=== PATIENT | male | born 1985 | race Caucasian/White ===

== ENCOUNTER 2016-10-22 14:33 | Inpatient (IN) | payer BC, OTHER ==
[~2016-10-22] VITALS: Ht 177.8 cm; Wt 65.8 kg
[2016-10-22 14:55] VITALS: BP 129/65
--- NOTE | 2016-10-22 14:55 | NUR ---
Pre-admission Notes: Client is seen in intake at this time. He is alert and oriented x 4. Verbally responsive. Appears anxious and withdrawn. Able to make his needs known. He is able to appropriately answer questions regarding the admission process. Educated patient on the admission process and verbalized good understanding. He denies any seizure history and reports past medical hx of Depression. He reports allergies to Lactose, where he experiences nausea, and stomach cramps when taken. Client states that he is here to safely detox from heroin and methamphetamine. VS as ff: BP 129/65 Pulse 112 RR [address] 5/10 generalized body aches COWS 8
--- NOTE | 2016-10-22 15:15 | NUR ---
Admission Note: Patient is a 31 year old male admitted for opiate and methamphetamine dependence under the care of Dr. Andrews Santillan. He is alert and oriented x 4. Able to make his needs known. Denies S/I, H/I or AV hallucinations noted. Respirations even and unlabored. No SOB noted. Body check done. No contraband was found. Skin check done. No rashes, no lesions, no bruising noted. Bilateral trackmarks noted on AC area. Abdomen soft and non-distended with (+) BS in all 4 quadrants. No complains of N/V/D or constipation noted. Reports that his last BM was this AM. Complains of mild abdominal cramps related to withdrawals. Voids independently. Able to provide urine for UDS. Bladder non-distended. No complains of dysuria noted. Ambulatory ad deon with steady gait. Past medical hx of depression at 17 years old, for which he use to take Prozac, but does not recall how many milligrams he takes and verbalizes "It's been years since I last took it, but I want to continue taking it again." Denies any family hx of substance abuse. Denies any seizure history. He denies having a PCP at this time. He reports that his usual withdrawal symptoms are stomach cramps, anxiety, insomnia and body aches. Patient is currently unemployed and lives with his parents. He reports being in halfway x 45 days and got out on 08/21/2016 and started using again. His longest period of sobriety was x 60 days in 10/2014. Drug Use Hx as ff: 1. Heroin (since 23 years old) - injects 1/2 gram of Heroin daily since 08/21/2016. Last use was on 10/21/2016 at 1000 1/10 gram. 2. Methamphetamine (since 30 years old) - smokes 1/2 gram intermittently since 08/21/2016. Last use was on 10/17/2016 Treatment History: 1. [facility] - 10/14/2014 x 7 days to detox 2. [facility] - 10/21/[address] Santillan made aware of patient's current medical condition, drug use hx and arrival in the unit. Per MD Santillan, he will come and see the patient shortly and will enter in orders.
[2016-10-22] MEDS ORDERED: BUPRENORPHINE HCL 2 MG TAB.SUBL SL PRN (15:45)
[2016-10-22] MEDS ORDERED: LORAZEPAM 1 MG TABLET PO PRN (15:45)
[2016-10-22] MEDS ORDERED: MIRALAX 17 GM POWD.PACK PO PRN (15:45)
[2016-10-22] MEDS ORDERED: ONDANSETRON 4 MG/2 ML VIAL IM PRN (15:45)
[2016-10-22] MEDS ORDERED: LOPERAMIDE HCL 2 MG CAPSULE PO PRN ×2 (15:45)
[2016-10-22] MEDS ORDERED: IBUPROFEN 600 MG TABLET PO PRN (15:45)
[2016-10-22] MEDS ORDERED: HYDROXYZINE PAMOATE 25 MG CAPSULE PO PRN (15:45)
[2016-10-22] MEDS ORDERED: TRAZODONE 50 MG TABLET PO PRN (15:45)
[2016-10-22] MEDS ORDERED: MAG HYDROX/AL HYDROX/SIMETH 30 ML LIQUID UDC PO PRN (15:45)
[2016-10-22] MEDS ORDERED: DICYCLOMINE HCL 20 MG TABLET PO PRN (15:45)
[2016-10-22] MEDS ORDERED: ACETAMINOPHEN 325 MG TABLET PO PRN (15:45)
[2016-10-22] MEDS ORDERED: ONDANSETRON ODT 4 MG TAB.RAPDIS SL PRN (15:45)
[2016-10-22] MEDS ORDERED: CLONIDINE HCL 0.1 MG TABLET PO PRN (15:45)
[2016-10-22 15:59] LABS: *AMPHETAMINE, URINE NEGATIVE (NEGATIVE); *BARBITURATE, URINE NEGATIVE (NEGATIVE); *CANNABINOID, URINE NEGATIVE (NEGATIVE); *COCCAINE, URINE NEGATIVE (NEGATIVE); *OPIATE, URINE POSITIVE (NEGATIVE); *PHENCYCLIDINE SCREEN,URINE NEGATIVE (NEGATIVE)
[2016-10-22 16:00] VITALS: BP 121/70
[2016-10-22] MEDS ORDERED: FLUO40CA8 PO (16:15)
[2016-10-22] MEDS ORDERED: TRAZ-144 PO (16:15)
[2016-10-22] MEDS: METHOCARBAMOL 750 MG TABLET PO PRN (16:34)
--- NOTE | 2016-10-22 16:34 | NUR ---
Robaxin 750 mg PO given: Patient noted with complain of 5/10 muscle aches and pains related to opiate withdrawal. Medicated patient with Robaxin 750 mg PO as ordered. Will monitor for effectiveness.
[2016-10-22] MEDS ORDERED: [UNRECOGNIZED DRUG - REMARK] ALT NOSTRI (17:25)
[2016-10-22] MEDS ORDERED: PRE WORKOUT (17:26)
--- NOTE | 2016-10-22 17:34 | NUR ---
Re-assessment: Per patient, PRN Robaxin was effective in reducing muscle aches and pains. PL 210.
--- NOTE | 2016-10-22 19:02 | NUR ---
End of Shift Notes: Patient admitted today for medically supervised withdrawal from opiates. VS monitored closely. No significant abnormalities noted. Withdrawal symptoms were closely monitored. Patient presented with stomach cramps, muscle aches and mild anxiety. Initial COWS upon admission 8, Last COWS 8. Patient will be starting his 4-day Subutex taper in AM. Medicated patient with Robaxin 750 mg PO at 1634 for muscle aches and pains with help after 1 hour. Unable to participate in group and activities. Compliant with care and treatment. Will continue to monitor closely.
--- NOTE | 2016-10-22 19:30 | NUR ---
Start of shift notes: Received patient in bed, alert and oriented times 4. Speech is clear, normal in rate and able to make known of his needs. Behavior; calm and cooperative with care. Encouraged patient to express needs and concerns. Denies SI/HI/AVH. Patient interacted well staff and peers. Visible in the unit. No behavior issues. Will continue to monitor behavior and medication effectiveness throughout the shift.
[2016-10-22 19:48] LABS: BASOPHILS # (AUTO) 0.1 K/uL (0.0-8.0); BASOPHILS % (AUTO) 0.9 % (0.0-2.0); EOSINOPHILS # (AUTO) 0.4 K/uL (0.0-0.7); EOSINOPHILS % (AUTO) 4.1 % (0.0-7.0); HEMATOCRIT 47.6 % (40-50); HEMOGLOBIN 15.8 G/DL (14.0-18.0); LYMPHOCYTES # (AUTO) 2.8 K/UL (0.8-4.8); LYMPHOCYTES % (AUTO) 30.8 % (20.5-51.5); MEAN CORPUSCULAR HEMOGLOBIN 30.4 UUG (27.0-31.0); MEAN CORPUSCULAR HGB CONC 33 g/dL (32.0-37.0); MEAN CORPUSCULAR VOLUME 91.7 FL (82.0-92.0); MONOCYTES # (AUTO) 0.5 K/UL (0.1-1.30); MONOCYTES % (AUTO) 5.5 % (0.0-11.0); NEUTROPHILS # (AUTO) 5.3 K/UL (1.8-8.9); NEUTROPHILS % (AUTO) 58.7 % (38.5-71.5); PLATELET COUNT (AUTO) 357 K/UL (150-450); RED BLOOD CELL COUNT(AUTO) 5.19 MIL/UL (4.7-6.1); WHITE BLOOD COUNT (AUTO) 9.1 K/UL (4.0-11.2)
[2016-10-22 19:59] LABS: ETHANOL < 3 MG/DL (0-0)
[2016-10-22 20:00] VITALS: BP 125/80
[2016-10-22 20:01] LABS: ALANINE AMINOTRANSFERASE 39 U/L (16-63); ALKALINE PHOSPHATASE 79 U/L (50-136); ASPARTATE AMINOTRANSFERASE 33 U/L (15-37); BILIRUBIN,TOTAL 0.2 mg/dL (0.2-1.0); CARBON DIOXIDE 32 mmol/L (21-32); CHLORIDE 104 mmol/L (98-107); CREATININE 1.3 mg/dL (0.6-1.3); GLUCOSE 95 mg/dL (74-106); MAGNESIUM 2.3 mg/dL (1.8-2.4); TOTAL PROTEIN, SERUM 8.4 g/dL (6.4-8.2); UREA NITROGEN, BLOOD 10 mg/dL (7-18)
--- NOTE | 2016-10-23 00:06 | NUR ---
Patient administered Trazodone 50mg. Patient asleep and unable to assess COWS and refused vitals signs at this time. Addendum: 10/23/16 at 0009 by SHAWN QUILES RN Amended: Links added.
[2016-10-23 04:49] VITALS: BP 107/72
--- NOTE | 2016-10-23 05:30 | NUR ---
End of shift notes: Patient remained calm and cooperative with care. Vital signs: 107/72, 94, 18, 97.4, 97% room air. Denies pain and any apparent discomfort at this time. No adverse reaction to medication reported or noted at this time. All needs are met. No behavior issues at this time. Patient ready to start 4 day subutex taper this morning. COWS @ 0400 is 2. Compliant with medication regiment and all unit rules. Interacted well with staff and selective peers. Comfortable and visible in the unit.
--- NOTE | 2016-10-23 07:00 | NUR ---
Start of Shift Notes: Received patient in his room. Alert and oriented x 4. Verbally responsive. Able to make his needs known. Respirations even and unlabored. No SOB noted. Skin warm and dry to touch. Abdomen soft and non-distended. BS (+) in all 4 quadrants. No complains of N/V/D or constipation noted. Voids independently with steady gait. Patient is a 31 year old male admitted for opiate and methamphetamine dependence who was placed on a 4-day Subutex taper as ordered. Prior to admission, patient was using 1/2 gram of Heroin IV daily x 2 months and intermittent use of 1/2 gram of methamphetamine x 2 months. Has past medical hx of depression. Allergic to lactose. On a lactose free diet. Educated patient on his current plan of care for the day and his medication regimen. Encouraged oral fluid intake and encouraged group participation to learn new skills to prevent relapse. Will continue to monitor closely.
[2016-10-23 08:00] VITALS: BP 117/76
[2016-10-23] MEDS: METHOCARBAMOL 750 MG TABLET PO PRN (08:51)
[2016-10-23] MEDS: BUPRENORPHINE HCL 2 MG TAB.SUBL SL SCH ×3 (08:51→20:23)
[2016-10-23] MEDS: MULTIVITAMINS,THERAPEUTIC TABLET PO SCH (08:51)
--- NOTE | 2016-10-23 08:51 | NUR ---
Robaxin 750 mg PO as ordered: patient complained of 6/10 myalgia related to his withdrawal symptoms. Non-pharmacological interventions were ineffective. Medicated patient with Robaxin 750 mg PO as ordered. Will monitor for effectiveness.
[2016-10-23] MEDS ORDERED: TUBERCULIN,PURIF.PROT.DERIV. 5 TU/0.1 ML TEST ID ONE (09:00)
--- NOTE | 2016-10-23 09:51 | NUR ---
Re-assessment: per patient, PRN Robaxin was effective in reducing myalgia. PL 04/22.
[2016-10-23] MEDS: FLUOXETINE HCL 20 MG CAPSULE PO SCH (10:30)
--- NOTE | 2016-10-23 10:30 | NUR ---
Psych MD Visit: Dr. Greenberg in to see the patient at this time and started patient on Prozac as ordered. Education provided. Patient verbalized good understanding. Will continue to monitor.
--- NOTE | 2016-10-23 11:18 | NUR ---
Prozac not adminstered: Patient refused to take Prozac at this time. Patient prefers to take it in AM. Education provided. Per patient, he will take it tomorrow AM.
[2016-10-23 12:00] VITALS: BP 95/62
[2016-10-23 16:00] VITALS: BP 115/68
--- NOTE | 2016-10-23 18:57 | NUR ---
End of Shift Notes: Patient initiated his 4-day Subutex taper today to control withdrawal symptoms related to opiates. Tolerated well. No adverse reactions noted. VS monitored closely. No significant abnormalities noted. Withdrawal symptoms were closely monitored. Initial COWS 12, patient presented with chills, hot flashes, piloerection of the skin, anxiety, muscle aches and pains and largely dilated pupils. Medicated patient with Robaxin 750 mg PO as ordered at 0851 with help after 1 hour. Last COWS 4. Per patient Subutex has been effective in reducing his withdrawal symptoms. TB test given to left forearm. Patient tolerated well. No bleeding from injection site noted. Patient was unable to participate in group and activities due to his withdrawal symptoms. Compliant with care and treatment. All needs met and attended. Will continue to monitor closely.
--- NOTE | 2016-10-23 19:30 | NUR ---
START OF SHIFT Patient is a 31 year old male admitted for opiate and methamphetamine dependence .Pt is alert and oriented times 4. Speech is clear ,able to verbalize needs. Behavior is calm and cooperative.Received in room in stable condition.Pt is intolerant to lactose, Denies SI/HI/AH/VH. Visible in the unit. Pt is on 4 day Subutex taper as ordered and is tolerating well;stated that it is helping him with his withdrawal symptoms.PO fluids encouraged as tolerated.All safety measures in place per hospital policy,call light within reach.Will continue to monitor .
[2016-10-23 20:00] VITALS: BP 98/65
[2016-10-23] MEDS: CLONIDINE HCL 0.1 MG TABLET PO SCH (20:22)
[2016-10-23] MEDS: GABAPENTIN 300 MG CAPSULE PO SCH (20:22)
[2016-10-24] VITALS: BP 106/81
[2016-10-24 04:00] VITALS: BP 103/44
--- NOTE | 2016-10-24 06:44 | NUR ---
END OF SHIFT Patient is a 31 year old male admitted for opiate and methamphetamine dependence .Pt is alert and oriented times 4. Calm and cooperative.Pt is intolerant to lactose. Pt is on 4 day Subutex taper as ordered and is tolerating well;stated that it is helping him with his withdrawal symptoms.PO fluids encouraged as tolerated.Last COWS=2 at 0400.Pt slept all night without any problem,slept 8 hrs,fluid intake was 1710 mls,voided x 2.No PRN meds given.All safety measures in place per hospital policy,call light within reach.Will continue to monitor .
--- NOTE | 2016-10-24 07:26 | NUR ---
START OF SHIFT NOTE patient is alert and orientated X4, he is laying in bed resting this morning with respirations even and unlabored. Patient slept 8 hours last night per night nurse. last COWS 2. No PRNS given last night. All safety measures in place, will continue to monitor patient.
[2016-10-24 08:06] VITALS: BP 95/59
[2016-10-24] MEDS: GABAPENTIN 300 MG CAPSULE PO SCH ×2 (08:09→21:27)
[2016-10-24] MEDS: MULTIVITAMINS,THERAPEUTIC TABLET PO SCH (08:10)
[2016-10-24] MEDS: FLUOXETINE HCL 20 MG CAPSULE PO SCH (08:10)
[2016-10-24] MEDS: CLONIDINE HCL 0.1 MG TABLET PO SCH ×2 (08:11→21:27)
[2016-10-24] MEDS ORDERED: BUPRENORPHINE HCL 2 MG TAB.SUBL SL SCH (09:00)
[2016-10-24 10:10] LABS: HEPATITIS B SURFACE AG Negative (Negative)
[2016-10-24 12:31] VITALS: BP 118/72
[2016-10-24] MEDS: BUPRENORPHINE HCL 2 MG TAB.SUBL SL SCH ×2 (15:24→21:27)
[2016-10-24] MEDS: BACLOFEN 10 MG TABLET PO SCH ×2 (15:24→21:27)
[2016-10-24 16:57] VITALS: BP 127/71
--- NOTE | 2016-10-24 18:41 | NUR ---
END OF SHIFT NOTE Patient is a 31 year old male admitted for heroin and meth, he is on a Subutex taper and tolerating well. Last COWS 6. No history of seizures. Patient attended group and activities. He was seem by Dr. Santillan today. Patient was not given any PRNs today. Vital signs remain within normal limits. All needs have been met. All safety measures in place. Will continue to monitor patient until endorsed to oncoming night nurse.
--- NOTE | 2016-10-24 19:30 | NUR ---
START OF SHIFT Patient is a 31 year old male admitted for heroin and meth dependency, he is on a Subutex taper and tolerating well. Last COWS 6. No history of seizures. Per report, Patient was not given any PRNs today. Vital signs remained within normal limits. All needs have been met.Pt received in stable condition. All safety measures in place. Will continue to monitor.
[2016-10-24 20:00] VITALS: BP 127/75
[2016-10-24] MEDS: TRAZODONE 50 MG TABLET PO PRN (23:50)
--- NOTE | 2016-10-24 23:50 | NUR ---
PRN TRAZODONE GIVEN ORDERED FOR C/O INSOMNIA.WILL MONITOR.
[2016-10-25] VITALS: BP 116/70
--- NOTE | 2016-10-25 00:50 | NUR ---
PRN F/U Pt is resting in bed with eyes closed,breathing is even and non labored,no s/s of distress noted,will continue to monitor.
[2016-10-25 04:00] VITALS: BP 101/68
--- NOTE | 2016-10-25 06:31 | NUR ---
END OF SHIFT Patient is a 31 year old male admitted for heroin and meth dependency, remains on a Subutex taper and tolerating well. Last COWS 2. No history of seizures. Vital signs remained within normal limits. PRN Trazodone was given for insomnia with good effect.Pt slept 7 hrs,fluid intake was 1095 mls,voided x 2 . All needs have been met.Pt is in stable condition. All safety measures in place. Will continue to monitor.
--- NOTE | 2016-10-25 07:43 | NUR ---
START OF SHIFT NOTE Patient is alert and orientated X 4. Patient is laying in bed this morning with respirations even and unlabored. patient slept 7 hours last night per night nurse. Last COWS 2 per night nurse. Patient was given Trazodone last night PRN to help him sleep, with effectiveness. He is on a 4 day subutex taper and tolerating well. all safety measures are in place. will continue to monitor.
[2016-10-25 08:11] VITALS: BP 106/57
[2016-10-25] MEDS: MULTIVITAMINS,THERAPEUTIC TABLET PO SCH (08:27)
[2016-10-25] MEDS: GABAPENTIN 300 MG CAPSULE PO SCH ×2 (08:27→20:29)
[2016-10-25] MEDS: FLUOXETINE HCL 20 MG CAPSULE PO SCH (08:27)
[2016-10-25] MEDS: CLONIDINE HCL 0.1 MG TABLET PO SCH ×2 (08:28→20:30)
[2016-10-25] MEDS: BUPRENORPHINE HCL 2 MG TAB.SUBL SL SCH ×3 (08:28→20:29)
[2016-10-25] MEDS: BACLOFEN 10 MG TABLET PO SCH ×3 (08:28→20:30)
[2016-10-25 12:59] VITALS: BP 110/76
[2016-10-25 17:52] VITALS: BP 115/61
--- NOTE | 2016-10-25 18:48 | NUR ---
END OF SHIFT NOTE Patient is a 31 year old male admitted 10/22/16 for Heroin, meth, and hydrocodone. Patient is on a 4 day Subutex taper and tolerating well. Last COWS 4 no PRNS given during the day shift. Vital sign have been within normal limit today. Patient is allergic to lactose, full code, with no other allergies. Skin is intact. Patient has been compliant with MDs orders and treatment plan, he has been participating in group and activities. All safety measures are in place and all needs have been met. Will continue to monitor patient until endorsed to night nurse.
--- NOTE | 2016-10-25 18:48 | NUR ---
START OF SHIFT NOTE: Patient endorsed by day shift nurse in stable condition. Report received. Patient is a 31year old male admitted to [facility] on 10/22/2016 for medically supervised withdrawal from Opioid, continue 5 Day Subutex Taper with tolerated well without ASE. Patient remained compliant with treatment, medications and diet regime. Patient reports Allergy to Dairy/Lactose. Patient is on Full Code, Regular Diet, Fall and Seizures Precautions. Patient denies Seizures History. Upon endorsement, patient is in the room. Assessment done. Patient is alert and oriented x4. Speech is clear and soft. COWS 7. Patient presented with mild anxiety, agitation, nervousness, diaphoresis, restlessness, body aches, insomnia ,fatigue, nasal stuff/tears, and yawning. Patient denies SI/HI. Respirations unlabored and even. Patient denies SOB and chest pain. Lungs Sounds are clear bilaterally. Bowel Sounds active in all x4 quadrants. PERRLA, brisk capillary refill, dry plasterer helper equal and strong. Skin is intact, warm and dry to touch. Encourage fluids as tolerated. Encourage to attend activities groups. All needs met. Safety measures on place. Call light within reach, bed in lowest position and locked, padded rails up bilaterally rails up bilaterally. Will continue to monitor closely.
[2016-10-25 20:00] VITALS: BP 115/67
[2016-10-25] MEDS: TRAZODONE 50 MG TABLET PO PRN (23:10)
--- NOTE | 2016-10-25 23:10 | NUR ---
PRN TRAZODONE 50 MG 1 TAB PO ADMINISTRATION. Patient c/o insomnia and asked aid. Patient was assessed. VS WNL. Patient denies SI/HI. PRN Trazodone PO discussed with patient, and patient's educated for actions, side effects, and adverse reactions of Trazodone. Patient returned knowledge back by verbalized understanding. PRN Trazodone 50 mg 1 tab PO administrated with full glass of water as ordered. Patient tolerated well. All needs met. Safety measures on place. Call light within reach, bed in lowest position and locked, padded rails up bilaterally rails up bilaterally. Will continue to monitor closely.
[2016-10-26] VITALS: BP 117/63
--- NOTE | 2016-10-26 00:10 | NUR ---
RE-ASSESSMENT Patient is sleeping. Respirations even and unlabored. RR: 14. PRN Trazodone PO waseffective. All needs met. Safety measures on place. Call light within reach, bed in lowest position and locked, padded rails up bilaterally rails up bilaterally. Will continue to monitor closely.
--- NOTE | 2016-10-26 04:00 | NUR ---
VS REFUSED AND COWS/CIWA DEFERRED Patient refused to be woken up for 04:00 VS. COWS/CIWA deferred d/t patient sleeping to assess while patient is awake. Safety measures on place by hospital policy: Call light within reach, bed in lowest position and locked; padded side rails up x2. Will continue to monitor closely.
--- NOTE | 2016-10-26 06:51 | NUR ---
END OF SHIFT NOTE: Patient endorsed to day shift nurse in stable condition. Report received. Patient is a 31 year old male admitted to [facility] on 10/22/2016 for medically supervised withdrawal from Opioid, continue 5 Day Subutex Taper with tolerated well without ASE. Patient remained compliant with treatment, medications and diet regime. Patient reports Allergy to Dairy/Lactose. Patient is on Full Code, Regular Diet, Fall and Seizures Precautions. Patient denies Seizures History. Last COWS 9 at 0000. Patient refused to be woken up for 04:00 VS. COWS/CIWA deferred d/t patient sleeping to assess while patient is awake. During my maintenance supervisor 2nd shift patient presented with anxiety, agitation, nervousness, tachycardia, diaphoresis, restlessness, body aches, insomnia ,fatigue, nasal stuffy/moist eyes, and yawning. Patient denies SI/HI. VS were stable and WNL. Respirations unlabored and even. Patient denies SOB and chest pain. Lungs Sounds are clear bilaterally. Bowel Sounds active in all x4 quadrants. PERRLA, brisk capillary refill, advisory application developer equal and strong. Skin is intact, warm and dry to touch. PRN Trazodone PO administrated for insomnia was effective. Patient slept 6 hours, intake 1,000 ml, voided x1. Encourage fluids as tolerated. Encourage to attend activities groups. All needs met. Safety measures on place. Call light within reach, bed in lowest position and locked, padded rails up bilaterally All needs met.
--- NOTE | 2016-10-26 07:50 | NUR ---
Start of shift note; Received report from night nurse. Patient is a 31 year old male admitted for Opiate withdrawals. Patient was placed on a 4 day Subutex taper, no adverse reactions noted. Patient reported history of depression. Patient slept for 6 hours. Patient is on fall precaution. Bed in lowest position, call light within reach. All safety measures secured. Will continue to monitor patient.
[2016-10-26 08:00] VITALS: BP 113/64
[2016-10-26] MEDS: FLUOXETINE HCL 20 MG CAPSULE PO SCH (08:46)
[2016-10-26] MEDS: GABAPENTIN 300 MG CAPSULE PO SCH ×2 (08:46→21:15)
[2016-10-26] MEDS: BACLOFEN 10 MG TABLET PO SCH ×3 (08:47→21:17)
[2016-10-26] MEDS: CLONIDINE HCL 0.1 MG TABLET PO SCH ×2 (08:47→21:16)
[2016-10-26] MEDS: MULTIVITAMINS,THERAPEUTIC TABLET PO SCH (08:47)
[2016-10-26] MEDS ORDERED: BUPRENORPHINE HCL 2 MG TAB.SUBL SL SCH (09:00)
[2016-10-26 12:00] VITALS: BP 129/87
[2016-10-26] MEDS ORDERED: GABA-534 PO (14:07)
[2016-10-26] MEDS ORDERED: DICY20TA28 PO (14:07)
[2016-10-26] MEDS ORDERED: IBUP-1955 PO (14:07)
[2016-10-26] MEDS ORDERED: CLON0.1T14 PO (14:07)
[2016-10-26] MEDS ORDERED: BACL10TA PO (14:07)
[2016-10-26] MEDS ORDERED: HYDR-3895 PO (14:07)
[2016-10-26 16:00] VITALS: BP 119/69
--- NOTE | 2016-10-26 18:06 | NUR ---
START OF SHIFT NOTE: Patient endorsed by day shift nurse in stable condition. Report received. Patient is a 31 year old male admitted to [facility] on 10/22/2016 for medically supervised withdrawal from Opioid, completed 5 Day Subutex Taper with tolerated well without ASE. Patient remained compliant with treatment, medications and diet regime. Patient reports Allergy to Dairy/Lactose. Patient is on Full Code, Regular Diet, Fall and Seizures Precautions. Patient denies Seizures History. Upon endorsement, patient is in the room. Assessment done. Patient is alert and oriented x4. Speech is clear and soft. COWS 3. Patient presented with mild anxiety, agitation, nervousness, diaphoresis, and restlessness. Patient denies SI/HI. Respirations unlabored and even. Patient denies SOB and chest pain. Lungs Sounds are clear bilaterally. Bowel Sounds active in all x4 quadrants. PERRLA, brisk capillary refill, blurb writer equal and strong. Skin is intact, warm and dry to touch. Patient scheduled discharging tomorrow, on 10/27/2016. UDS test collected. Encourage fluids as tolerated. Encourage to attend activities groups. All needs met. Safety measures on place. Call light within reach, bed in lowest position and locked, padded rails up bilaterally rails up bilaterally. Will continue to monitor closely.
--- NOTE | 2016-10-26 18:06 | NUR ---
End of shift note; Patient is AOX4. Patient is a 31 year old male admitted for Opiate withdrawals. Patient was placed on a 4 day Subutex taper, no adverse reactions noted. Patient reported history of depression. Patient is on fall precaution. Bed in lowest position, call light within reach. Patient is medically cleared for discharge tomorrow. Patient completed taper without any adverse reactions. All safety measures secured. Met all needs.
[2016-10-26 20:00] VITALS: BP 109/66
[2016-10-26 21:45] LABS: *AMPHETAMINE, URINE NEGATIVE (NEGATIVE); *BARBITURATE, URINE NEGATIVE (NEGATIVE); *CANNABINOID, URINE NEGATIVE (NEGATIVE); *COCCAINE, URINE NEGATIVE (NEGATIVE); *OPIATE, URINE NEGATIVE (NEGATIVE); *PHENCYCLIDINE SCREEN,URINE NEGATIVE (NEGATIVE)
[2016-10-27] VITALS: BP 107/63
--- NOTE | 2016-10-27 07:00 | NUR ---
END OF SHIFT NOTE: Patient endorsed to day shift nurse in stable condition. Report received. Patient is a 31 year old male admitted to [facility] on 10/22/2016 for medically supervised withdrawal from Opioid, continue 5 Day Subutex Taper with tolerated well without ASE. Patient remained compliant with treatment, medications and diet regime. Patient reports Allergy to Dairy/Lactose. Patient is on Full Code, Regular Diet, Fall and Seizures Precautions. Patient denies Seizures History. Last COWS 2 at 0000. During my overnight stocker patient presented with anxiety, agitation, nervousness, tachycardia, and diaphoresis. Patient denies SI/HI. VS were stable and WNL during my shift. Patient refused to be woken up for 04:00 VS. COWS/CIWA deferred d/t patient sleeping to assess while patient is awake. Respirations unlabored and even. Patient denies SOB and chest pain. Lungs Sounds are clear bilaterally. Bowel Sounds active in all x4 quadrants. PERRLA, brisk capillary refill, accounts receivable specialist equal and strong. Skin is intact, warm and dry to touch. No PRN Medications administrated. Patient will discharging today, 10/27/2016, per MD's order. UDS Test results placed in chart. Patient slept 4 hours, intake 791 ml, voided x2. Encourage fluids as tolerated. Encourage to attend activities groups. All needs met. Safety measures on place. Call light within reach, bed in lowest position and locked, padded rails up bilaterally All needs met.
--- NOTE | 2016-10-27 07:37 | NUR ---
START OF SHIFT Patient scheduled for discharge this shift. Taper complete. No PRNs given last shift. He slept 4 hours. COWS 2 per night nurse. Patient reports readiness to discharge. Vitals stable. Will monitor until discharge.
[2016-10-27 08:00] VITALS: BP 113/64
[2016-10-27] MEDS: CLONIDINE HCL 0.1 MG TABLET PO SCH (08:28)
[2016-10-27] MEDS: GABAPENTIN 300 MG CAPSULE PO SCH (08:30)
[2016-10-27] MEDS: BACLOFEN 10 MG TABLET PO SCH (08:30)
[2016-10-27] MEDS: FLUOXETINE HCL 20 MG CAPSULE PO SCH (08:31)
[2016-10-27] MEDS: MULTIVITAMINS,THERAPEUTIC TABLET PO SCH (08:31)
--- NOTE | 2016-10-27 10:19 | NUR ---
DISCHARGE NOTE Patient is in stable condition, [id number], no complications. Skin intact. Patient given discharge instructions and pt dated and signed and verbalized understanding. All questions answered. Vital signs WNL. Pt denies S/I and H/I. COWS 2. Patient transported to [facility] by [facility] on 10/27/16 at 0959 where she was picked up by [employer]. MD is aware of pt discharge.
== END 2016-10-27 09:59 | disposition other institution (70) | DRG 895 ==
LOC: SRC 14:33
PROVIDERS: ADMIT Internal Medicine; ATTEND Internal Medicine
PROC: HZ2ZZZZ Detoxification Services for Substance Abuse Treatment (ICD-10-PCS; principal; 2016-10-22)
PROC: HZ41ZZZ Group Counseling for Substance Abuse Treatment, Behavioral (ICD-10-PCS; 2016-10-24)
PROC: HZ31ZZZ Individual Counseling for Substance Abuse Treatment, Behavioral (ICD-10-PCS; 2016-10-25)
DX: F11.23 Opioid dependence with withdrawal (principal); F33.2 Major depressive disorder, recurrent severe without psychotic features; F15.20 Other stimulant dependence, uncomplicated; G47.00 Insomnia, unspecified; Z81.8 Family history of other mental and behavioral disorders; Z81.1 Family history of alcohol abuse and dependence; F17.210 Nicotine dependence, cigarettes, uncomplicated; Z79.899 Other long term (current) drug therapy
CPT/HCPCS: 36415; 70030-TC; 80307; 80361; 83735; 85025; 86580; 86592; 86705; 86803; 87340; 87806; A4663; G0480